=== PATIENT | male | born 1970 | race Caucasian/White ===

== ENCOUNTER 2016-12-22 16:01 | Emergency (ER) | payer OTHER | END 2016-12-22 19:36 | disposition home or self-care (01) | LOC: ER1 16:01 | DX: S39.012A Strain of muscle, fascia and tendon of lower back, initial encounter (principal); F17.210 Nicotine dependence, cigarettes, uncomplicated; X50.0XXA Overexertion from strenuous movement or load, initial encounter | CPT/HCPCS: 96372; 99283; J1100; J1885 ==